=== PATIENT | female | born 1965 | race Caucasian/White ===

== ENCOUNTER 2017-05-05 20:20 | Emergency (ER) | payer MEDICAID ==
[~2017-05-05] VITALS: Ht 162.6 cm; Wt 75.0 kg
[2017-05-05] MEDS ORDERED: normal saline 1000ML IV soln IVB ONE (21:35)
[2017-05-05] MEDS ORDERED: proCHLORperazine 10 MG/2 ml inj IV ONE (21:35)
[2017-05-05] MEDS ORDERED: ketorolac trometh. 30mg/ml inj. IV ONE (21:35)
[2017-05-05 22:02] LABS: BASOPHILS % (AUTO) 0.4 % (0-1); EOSINOPHILS % (AUTO) 0.7 % (0-6); HEMATOCRIT 42.7 % (35.0-45.0); HEMOGLOBIN 14.5 g/dl (12.0-16.0); LYMPHOCYTES # (AUTO) 0.3 X10'3 (1.1-4.8); MEAN CORPUSCULAR HEMOGLOBIN 30.1 PG (27.0-31.0); MEAN CORPUSCULAR VOLUME 88.5 FL (78-98); MEAN PLATELET VOLUME 8.4 FL (7.4-10.4); MONOCYTES # (AUTO) 0.5 X10'3 (0-0.9); MONOCYTES % (AUTO) 7.8 % (2-12); NEUTROPHILS # (AUTO) 5.2 X10'3 (1.8-7.7); NEUTROPHILS % (AUTO) 86.1 % (42-75); PLATELET COUNT 141 X10'3 (140-440); RED BLOOD COUNT 4.83 X10'6 (4.20-5.60); WHITE BLOOD COUNT 6.1 X10'3 (4.5-11.0)
[2017-05-05 22:23] LABS: ALANINE AMINOTRANSFERASE 59 U/L (12-78); ALBUMIN 3.5 G/DL (3.4-5.0); ALBUMIN/GLOBULIN RATIO 1.2 (1.1-1.5); ALKALINE PHOSPHATASE 127 IU/L (46-116); ASPARTATE AMINO TRANSFERASE 30 U/L (10-37); BILIRUBIN,TOTAL 0.3 MG/DL (0.1-1.0); BLOOD UREA NITROGEN 9 MG/DL (7-18); CALCIUM 8.5 MG/DL (8.5-10.1); GLUCOSE 95 MG/DL (70-104); LIPASE 164 U/L (73-393); TOTAL PROTEIN 6.4 G/DL (6.4-8.2); eGFR 66 ML/MIN
[2017-05-05 22:30] LABS: CHLORIDE 106 MMOL/L (99-107); SODIUM 141 MMOL/L (135-145)
[2017-05-05 22:33] LABS: ANION GAP 7 (8-16); POTASSIUM 3.8 MMOL/L (3.5-5.1)
[2017-05-05] MEDS ORDERED: ONDA4TAB9 PO (22:43)
[2017-05-06 00:35] VITALS: BP 99/49
== END 2017-05-06 00:38 | disposition home or self-care (01) ==
LOC: ER 20:22
DX: J11.1 Influenza due to unidentified influenza virus with other respiratory manifestations (principal); G43.909 Migraine, unspecified, not intractable, without status migrainosus; F17.200 Nicotine dependence, unspecified, uncomplicated; Z98.890 Other specified postprocedural states; Z88.0 Allergy status to penicillin
CPT/HCPCS: 36415; 80053; 83690; 85025; 96361; 96374; 96375; 99285; J0780; J1885; J7030